=== PATIENT | male | born 1970 | race Hispanic/Latino ===

== ENCOUNTER 2020-12-22 06:02 | Emergency (ER) | payer SELFPAY ==
[2020-12-22 06:10] VITALS: PULSE 72; RESP 18; O2SAT 100
--- NOTE | 2020-12-22 06:16 | ED.ABDPAIN ---
HPI - Abdominal Pain <Nazario Woods MD - Last Filed: 12/22/20 18:03> General Chief Complaint: Abdominal Pain Stated Complaint: abdominal pain/chest discomfort Time Seen by Provider: 12/22/20 06:09 History of Present Illness HPI narrative: Patient here for right upper quadrant pain/bloating discomfort, started 9:00 p.m. tonight, 9 hours ago. Started after eating ham tonight. No nausea or vomiting no back pain no chest pain no dyspnea no nausea or sweating. Pain with movement. Similar episode in the past without any medical attention. No prior history of abdominal surgery. Does not drink alcohol on daily basis. No recent illness. No fever chills. Patient states has been under a lot of stress recently. Related Data Previous Rx's Medication Instructions Recorded permethrin 5 % topical cream 5 % TOPICAL ONCE #1 units 12/25/16 (Elimite) amoxicillin 500 mg tablet 500 mg PO TID 10 Days #0 tab 04/16/17 carbamide peroxide 6.5 % ear drops 5 - 10 drp OTIC BID #1 ml 04/22/17 (Debrox) clotrimazole-betamethasone 1 1 applictn TOP BID #15 gram 08/20/17 %-0.05 % topical cream Allergies Allergy/AdvReac Type Severity Reaction Status Date / Time No Known Drug Allergies Allergy Verified 12/22/20 06:33 Review of Systems <Nazario Woods MD - Last Filed: 12/22/20 18:03> Review of Systems Narrative: GENERAL: Denies chills, fatigue, malaise, fever, sweats. HEENT: Denies sinus pain, ear pain, sore throat RESPIRATORY: Denies dyspnea, cough CARDIOVASCULAR: Denies chest pain, palpitations GASTROINTESTINAL: Denies nausea, vomiting, complains abdominal pain : Denies dysuria, frequency, hematuria MUSCULOSKELETAL: denies muscle or bony pain SKIN: Denies rash, skin lesions NEUROLOGIC: Denies weakness, numbness ROS Unobtainable: All systems reviewed & are unremarkable except as noted in HPI and below Patient History <Nazario Woods MD - Last Filed: 12/22/20 18:03> Family History Mother Malignant neoplasm of female breast, unspecified laterality, unspecified site of breast Social History Smoking Status: Current every day smoker Exam <Nazario Woods MD - Last Filed: 12/22/20 18:03> Narrative Exam Narrative: GENERAL: in no distress, not toxic not dyspneic HEAD: Normocephalic. EYES: Pupils equal round No scleral icterus. No injection no discharge NECK: Trachea midline. CARDIOVASCULAR: Regular rate and rhythm without murmurs RESPIRATORY: Clear to auscultation. Breath sounds equal bilaterally. No wheezes, rales, or rhonchi. GASTROINTESTINAL: Abdomen soft, flat, reproducible right upper quadrant tenderness as well as epigastric tenderness. No peritoneal signs. Bowel sounds present EXTREMITIES: No gross deformities. BACK: No flank tenderness. NEURO: AOx4. SKIN: Warm and dry, no jaundice PSYCH: Not anxious, is cooperative Initial Vital Signs Initial Vital Signs: Vital Signs Pulse Rate 72 12/22/20 06:10 Respiratory Rate 18 12/22/20 06:10 Pulse Oximetry 100 12/22/20 06:10 <Flex Rodriguez DO - Last Filed: 12/22/20 08:23> Initial Vital Signs Initial Vital Signs: Vital Signs Pulse Rate 72 12/22/20 06:10 Respiratory Rate 18 12/22/20 06:10 Pulse Oximetry 100 12/22/20 06:10 Course <Nazario Woods MD - Last Filed: 12/22/20 18:03> Course Course Narrative: 7:00 a.m.. Sign out to Dr. Rodriguez, labs and imaging pending. Reassess for improvement. Orders Ordered: Discontinued Medications Al Hydrox/Mg Hydrox/Simethicone 20 ml/ Lidocaine HCl 15 ml 0 ml PO NOW ONE Stop: 12/22/20 06:16 Last Admin: 12/22/20 06:34 Dose: 35 ml Documented by: MARY ANN Sodium Chloride (Normal Saline 0.9%) 1,000 mls @ 1,000 mls/hr IV BOLUS ONE Stop: 12/22/20 07:14 Last Infusion: 12/22/20 08:36 Dose: 0 mls/hr Documented by: Admin: 12/22/20 06:34 Dose: 1,000 mls/hr Documented by: MARY ANN Ondansetron HCl (Ondansetron 4 Mg/2 Ml Inj) 4 mg IV NOW ONE Stop: 12/22/20 06:16 Last Admin: 12/22/20 06:34 Dose: 4 mg Documented by: MARY ANN Pantoprazole Sodium (Pantoprazole 40 Mg Vial) 40 mg IV NOW ONE Stop: 12/22/20 06:16 Last Admin: 12/22/20 06:34 Dose: 40 mg Documented by: MARY ANN Reevaluation(s) Reevaluation #1: Upper abdominal pain improving after GI cocktail/Zofran/IV fluids Time: 06:53 Vital Signs Vital signs: Vital Signs - 8 hr 12/22/20 06:20 Temperature 97.9 F Pulse Rate 64 Respiratory Rate 14 Blood Pressure 161/99 H Pulse Oximetry 100 <Flex Rodriguez DO - Last Filed: 12/22/20 08:23> Orders Ordered: Discontinued Medications Al Hydrox/Mg Hydrox/Simethicone 20 ml/ Lidocaine HCl 15 ml 0 ml PO NOW ONE Stop: 12/22/20 06:16 Last Admin: 12/22/20 06:34 Dose: 35 ml Documented by: MARY ANN Sodium Chloride (Normal Saline 0.9%) 1,000 mls @ 1,000 mls/hr IV BOLUS ONE Stop: 12/22/20 07:14 Last Infusion: 12/22/20 08:36 Dose: 0 mls/hr Documented by: Admin: 12/22/20 06:34 Dose: 1,000 mls/hr Documented by: MARY ANN Ondansetron HCl (Ondansetron 4 Mg/2 Ml Inj) 4 mg IV NOW ONE Stop: 12/22/20 06:16 Last Admin: 12/22/20 06:34 Dose: 4 mg Documented by: MARY ANN Pantoprazole Sodium (Pantoprazole 40 Mg Vial) 40 mg IV NOW ONE Stop: 12/22/20 06:16 Last Admin: 12/22/20 06:34 Dose: 40 mg Documented by: MARY ANN Vital Signs Vital signs: Vital Signs - 8 hr 12/22/20 06:20 Temperature 97.9 F Pulse Rate 64 Respiratory Rate 14 Blood Pressure 161/99 H Pulse Oximetry 100 MDM - Abdominal Pain <Nazario Woods MD - Last Filed: 12/22/20 18:03> Lab Data Result diagrams: 12/22/20 06:15 12/22/20 06:15 Labs: Lab Results 12/22/20 12/22/20 Range/Units 06:15 06:15 WBC 6.7 (4.5-11.0) X10^3/uL RBC 4.78 (4.5-5.9) X10^6/uL Hgb 13.4 L (13.5-17.5) g/dL Hct 41.6 (41-53) % MCV 87.1 (80-100) fL MCH 27.9 (26-34) PG MCHC 32.1 (30-36) % RDW 13.8 (11.6-14.8) % Plt Count 272 (150-400) X10^3/uL Neut % (Auto) 67.2 (50-75) % Lymph % (Auto) 19.9 L (25-40) % [place] % (Auto) 8.6 (3-14) % Eos % (Auto) 3.2 (2-4) % Baso % (Auto) 1.1 (0-2) % Neut # (Auto) 4500 (1559-2981) /uL Lymph # (Auto) 1300 (0458-4218) /uL [place] # (Auto) 600 (0-900) /uL Eos # (Auto) 200 (0-450) /uL Baso # (Auto) 100 (0-100) /uL Sodium 140 (137-145) mmol/L Potassium 3.8 (3.4-5.1) mmol/L Chloride 102 (98-107) mmol/L Carbon Dioxide 33 H (22-32) mmol/L BUN 14 (9-20) mg/dL Creatinine 0.96 (0.66-1.25) mg/dL Estimated GFR > 60.0 (>60) mL/min BUN/Creatinine Ratio 14.6 (6-22) Glucose 114 H (70-100) mg/dL Calcium 9.0 (8.4-10.2) mg/dL Total Bilirubin 0.3 (0.2-1.3) mg/dL AST 30 (17-59) IU/L ALT 22 (<50) IU/L Alkaline Phosphatase 76 (38-126) U/L Total Protein 7.2 (6.3-8.2) g/dL Albumin 4.1 (3.5-5.0) g/dL Globulin 3.1 (1.7-4.1) g/dL Albumin/Globulin Ratio 1.3 (1.0-2.8) Lipase 190 (23-300) U/L ECG Data Interpretation: Normal sinus rhythm rate [address] elevation or depression MDM Narrative Medical decision making narrative: Dr rodriguez: Received turned over from Dr. Woods. Reviewed patient's history and physical exam. Patient's ultrasound shows no gallbladder pathology. He is completely asymptomatic currently. Unsure the exact etiology of the patient's symptoms but does not appear to be a gallbladder issue. I feel that based on his presentation and in the resolution of his symptoms that we should hold on a CT scan for now. This is not necessarily a new issue that has been going on. Will having contact his primary doctor for a follow-up. He was given return precautions. He expressed understanding and agreement. <Flex Rodriguez, DO - Last Filed: 12/22/20 08:23> Lab Data Labs: Lab Results 12/22/20 12/22/20 Range/Units 06:15 06:15 WBC 6.7 (4.5-11.0) X10^3/uL RBC 4.78 (4.5-5.9) X10^6/uL Hgb 13.4 L (13.5-17.5) g/dL Hct 41.6 (41-53) % MCV 87.1 (80-100) fL MCH 27.9 (26-34) PG MCHC 32.1 (30-36) % RDW 13.8 (11.6-14.8) % Plt Count 272 (150-400) X10^3/uL Neut % (Auto) 67.2 (50-75) % Lymph % (Auto) 19.9 L (25-40) % [place] % (Auto) 8.6 (3-14) % Eos % (Auto) 3.2 (2-4) % Baso % (Auto) 1.1 (0-2) % Neut # (Auto) 4500 (8319-3849) /uL Lymph # (Auto) 1300 (1388-0046) /uL [place] # (Auto) 600 (0-900) /uL Eos # (Auto) 200 (0-450) /uL Baso # (Auto) 100 (0-100) /uL Sodium 140 (137-145) mmol/L Potassium 3.8 (3.4-5.1) mmol/L Chloride 102 (98-107) mmol/L Carbon Dioxide 33 H (22-32) mmol/L BUN 14 (9-20) mg/dL Creatinine 0.96 (0.66-1.25) mg/dL Estimated GFR > 60.0 (>60) mL/min BUN/Creatinine Ratio 14.6 (6-22) Glucose 114 H (70-100) mg/dL Calcium 9.0 (8.4-10.2) mg/dL Total Bilirubin 0.3 (0.2-1.3) mg/dL AST 30 (17-59) IU/L ALT 22 (<50) IU/L Alkaline Phosphatase 76 (38-126) U/L Total Protein 7.2 (6.3-8.2) g/dL Albumin 4.1 (3.5-5.0) g/dL Globulin 3.1 (1.7-4.1) g/dL Albumin/Globulin Ratio 1.3 (1.0-2.8) Lipase 190 (23-300) U/L Imaging Data US - abdomen: Radiologist's Impression: [address] [id number] Ultrasound Report Signed Patient: Flex Ordoñez MR#: [id number] : 1970 Acct:[id number] Age/Sex: 50 / M Date of Service: 12/22/20 Loc: ED Accession Number: [id number] ?? Procedure: US abdomen limited Ordering Provider: Nazario Woods MD PROCEDURE: US ABDOMEN LIMITED ? INDICATIONS:? RUQ PAIN ? TECHNIQUE:? Real-time focused scanning was performed of the abdomen, with image documentation.? ? COMPARISON:? None. ? FINDINGS:? ? Liver is normal in size and homogeneous in echotexture. ? Gallbladder is sonographically normal. No gallstones. No gallbladder wall thickening. No pericholecystic fluid. No sonographic Davies sign. ? Biliary tree is nondilated.? Common bile duct measures 4.5 millimeters. ? Pancreas is sonographically normal. ? IMPRESSION:? Normal examination without evidence of cholelithiasis or cholecystitis. If there is continued clinical concern for cholecystitis, a nuclear medicine HIDA scan should be considered for further evaluation. ? ? ? Dictated by: Akua Barrientos MD, PhD on 12/22/2020 at 8:00 ? ? Approved by: Akua Barrientos MD, PhD on 12/22/2020 at 8:01? MDM Narrative Medical decision making narrative: Dr rodriguez: Received turned over from Dr. nava. Reviewed patient's history and physical exam. Patient's ultrasound shows no gallbladder pathology. He is completely asymptomatic currently. Unsure the exact etiology of the patient's symptoms but does not appear to be a gallbladder issue. I feel that based on his presentation and in the resolution of his symptoms that we should hold on a CT scan for now. This is not necessarily a new issue that has been going on. Will having contact his primary doctor for a follow-up. He was given return precautions. He expressed understanding and agreement. Discharge Plan Departure Patient Disposition: Home Clinical Impression: Abdominal pain Instructions: DI for Abdominal Pain-Adult Activity Restrictions/Additional Instructions: I recommend that you contact your primary doctor for follow-up especially if your symptoms return or do not improve. Return to the emergency department for any new or worsening symptoms. Prescriptions: No Action permethrin [Elimite] 5 % cream 5 % Topical ONCE Qty: 1 RF: 1 amoxicillin 500 MG tablet 500 mg PO TID 10 Days Qty: 0 RF: 0 carbamide peroxide [Debrox] 15 ML drops 5 - 10 drp OTIC BID Qty: 1 RF: 0 clotrimazole-betamethasone 1-0.05 % cream 1 applictn TOP BID Qty: 15 RF: 1 Referrals: Sharon Uribe DO [Primary Care Provider] -
[2020-12-22 06:20] VITALS: BP 161/99; PULSE 64; RESP 14; TEMP 36.6; O2SAT 100; BMI 20.5
[2020-12-22 06:25] LABS: Add Manual Diff / Slide Review NO; Basophils Absolute Auto 100 /uL (0-100); Basophils Percent Auto 1.1 % (0-2); Eosinophils Absolute Auto 200 /uL (0-450); Eosinophils Percent Auto 3.2 % (2-4); Hematocrit 41.6 % (41-53); Hemoglobin 13.4 g/dL (13.5-17.5); Lymphocytes Absolute Auto 1300 /uL (1100-4500); Lymphocytes Percent Auto 19.9 % (25-40); Mean Corpuscular HGB Conc 32.1 % (30-36); Mean Corpuscular Hemoglobin 27.9 PG (26-34); Mean Corpuscular Volume 87.1 fL (80-100); Monocytes Absolute Auto 600 /uL (0-900); Monocytes Percent Auto 8.6 % (3-14); Neutrophils Absolute Auto 4500 /uL (1500-7000); Neutrophils Percent Auto 67.2 % (50-75); Platelet Count 272 X10^3/uL (150-400); Red Blood Cell Count 4.78 X10^6/uL (4.5-5.9); Red Cell Distribution Width 13.8 % (11.6-14.8); White Blood Cell Count 6.7 X10^3/uL (4.5-11.0)
[2020-12-22 06:30] VITALS: BP 147/91; PULSE 64; RESP 12; O2SAT 100
[2020-12-22] MEDS: ONDANSETRON 4 MG/2 ML INJ IV (06:34)
[2020-12-22] MEDS: MAG HYDROX/ALUMINUM/SIMETH SUS 20 ML, LIDOCAINE VISCOUS 2% 15 ML PO (06:34)
[2020-12-22] MEDS: SODIUM CHLORIDE 0.9% 1,000 ML 1000 ML IV (06:34)
[2020-12-22] MEDS: PANTOPRAZOLE 40 MG VIAL IV (06:34)
[2020-12-22 06:37] LABS: Alanine Aminotransferase 22 IU/L (<50); Albumin 4.1 g/dL (3.5-5.0); Albumin Globulin Ratio 1.3 (1.0-2.8); Alkaline Phosphatase 76 U/L (38-126); Aspartate Aminotransferase 30 IU/L (17-59); BUN Creatinine Ratio 14.6 (6-22); Bilirubin Total 0.3 mg/dL (0.2-1.3); Blood Urea Nitrogen 14 mg/dL (9-20); Carbon Dioxide 33 mmol/L (22-32); Chloride 102 mmol/L (98-107); Estimated Glomerular Filt Rate > 60.0 mL/min (>60); Globulin 3.1 g/dL (1.7-4.1); Glucose 114 mg/dL (70-100); HEMOLYSIS < 15 (0-50); Lipase 190 U/L (23-300); Potassium 3.8 mmol/L (3.4-5.1); Sodium 140 mmol/L (137-145); Total Protein 7.2 g/dL (6.3-8.2)
--- NOTE | 2020-12-22 06:51 | DI.US.S_ITS ---
PROCEDURE: US ABDOMEN LIMITED INDICATIONS: RUQ PAIN TECHNIQUE: Real-time focused scanning was performed of the abdomen, with image documentation. COMPARISON: None. FINDINGS: Liver is normal in size and homogeneous in echotexture. Gallbladder is sonographically normal. No gallstones. No gallbladder wall thickening. No pericholecystic fluid. No sonographic Davies sign. Biliary tree is nondilated. Common bile duct measures 4.5 millimeters. Pancreas is sonographically normal. IMPRESSION: Normal examination without evidence of cholelithiasis or cholecystitis. If there is continued clinical concern for cholecystitis, a nuclear medicine HIDA scan should be considered for further evaluation. Dictated by: Akua Barrientos MD, PhD on 12/22/2020 at 8:00 Approved by: Akua Barrientos MD, PhD on 12/22/2020 at 8:01
[2020-12-22 07:00] VITALS: BP 144/85; PULSE 72; RESP 14
[2020-12-22 07:30] VITALS: BP 150/82; PULSE 70; RESP 12
[2020-12-22 08:00] VITALS: BP 125/75; PULSE 76; RESP 17
== END 2020-12-22 08:37 | disposition home or self-care (01) ==
PROVIDERS: Emergency Medicine; Emergency Provider Emergency Medicine; Family Provider Family Medicine; PCP Family Medicine
DX: R10.11 Right upper quadrant pain (principal); R07.89 Other chest pain
CPT/HCPCS: 36415; 76705; 80053; 83690; 85025; 93005; 96361; 96374; 96375; 99284; C9113; J2405